=== PATIENT | female | born 1945 | race Caucasian/White ===

== ENCOUNTER 2018-05-01 11:53 | Day surgery (SDC) | payer MEDICARE ==
[2018-05-01 13:06] VITALS: TEMP 97.8
[2018-05-01] MEDS ORDERED: LACTATED RINGERS 1,000 ML IV ONE (13:13)
[2018-05-01] MEDS ORDERED: LIDOCAINE 1% 20 ML VIAL (10MG/ML) FOR IV START INTRADERMA ONE (13:14)
[2018-05-01] MEDS ORDERED: LIDOCAINE 1% INJ 10MG/ML (20 ML MDV) ONE (13:53)
[2018-05-01] MEDS ORDERED: PROPOFOL 10 MG/ML 20 ML VIAL IV ONE (13:53)
[2018-05-01 14:30] VITALS: BP 157/85; PULSE 60; RESP 16
--- NOTE | 2018-05-01 14:53 | P.PCN ---
Date of Procedure: 05/01/18 Procedure(s) Performed: BRIEF HISTORY: Patient is a 72-year-old pleasant female, scheduled for an elective colonoscopy as a part of value should of chronic diarrhea for the last several months duration. PROCEDURE PERFORMED: Colonoscopy with biopsy. PREOPERATIVE DIAGNOSIS: Chronic diarrhea. IV sedation per Anesthesia. PROCEDURE: After informed consent was obtained, the patient, was brought into the endoscopy unit. IV sedation was administered by Anesthesia under continuous monitoring. Digital rectal examination was normal. Initially the Olympus CF- 160 flexible video colonoscope was then inserted in the rectum, gradually advanced into the cecum without any difficulty. Careful examination was performed as the scope was gradually being withdrawn. Ileocecal valve and the appendiceal orifice were visualized and appeared normal. Prep was excellent. Mucosa of the cecum, ascending colon, transverse colon, descending colon, sigmoid colon, and rectum appeared normal. Random biopsies were done from the ascending and descending colon to rule out microscopic/collagenous colitis. Scattered sigmoid diverticulosis seen. Retroflexion was performed in the rectum and no lesions were seen. The patient tolerated the procedure well. IMPRESSION: Normal-appearing colon from rectum to cecum with no evidence of colitis or colorectal neoplasia . At sigmoid diverticulosis. RECOMMENDATIONS: Findings of this examination were discussed with the patient as her family. She was advised to follow with the biopsy results and was advised to see Dr. Domingo in 2-3 weeks.
== END 2018-05-01 15:00 | disposition home or self-care (01) ==
LOC: ORWHC2ENDO 11:53
PROVIDERS: ATTEND Internal Medicine Gastroenterology
DX: K57.30 Diverticulosis of large intestine without perforation or abscess without bleeding (principal); K52.9 Noninfective gastroenteritis and colitis, unspecified; I10 Essential (primary) hypertension; E78.5 Hyperlipidemia, unspecified; Z79.899 Other long term (current) drug therapy; Z88.5 Allergy status to narcotic agent
CPT/HCPCS: 88305; 45380; J2001; J2704

== ENCOUNTER → 2023-08-21 | Outpatient (CLI) | payer MEDICARE ==
[2023-08-21 18:37] LABS: Basophils # (A) 0.03 X 10*3/uL (0.00-0.10); Basophils % (A) 0.4 %; Eosinophils # (A) 0.06 X 10*3/uL (0.04-0.35); Eosinophils % (A) 0.9 %; HCT 40.1 % (37.2-46.3); Lymphocytes # (A) 1.46 X 10*3/uL (0.90-5.00); Lymphocytes % (A) 21.8 %; MCH 31.1 pg (27.0-32.0); MCHC 32.4 g/dL (32.0-37.0); MCV 95.9 FL (80.0-97.0); Mean Platelet Volume 11.5 FL (9.5-12.2); Monocytes # (A) 0.79 X 10*3/uL (0.20-1.00); Monocytes % (A) 11.8 %; NRBC Per 100 WBC 0 X 10*3/uL (0.00-0.01); Neutrophils # (A) 4.34 X 10*3/uL (1.80-7.70); Neutrophils % (A) 64.7 %; Platelet Count 196 X 10*3/uL (140-440); RBC 4.18 X 10*6/uL (4.10-5.20); WBC 6.71 X 10*3/uL (4.50-10.00)
== END | disposition home or self-care (01) ==
LOC: LABPAT 12:00
PROVIDERS: ATTEND Obstetrics & Gynecology Obstetrics
DX: Z01.812 Encounter for preprocedural laboratory examination (principal); N95.0 Postmenopausal bleeding
CPT/HCPCS: 36415; 85025